=== PATIENT | female | born 1940 | race Caucasian/White ===

== ENCOUNTER 2023-10-26 13:40 | Emergency (ER) | payer OTHER, BC ==
[2023-10-26 14:00] VITALS: BMI 28.2
[2023-10-26] MEDS ORDERED: ASPIRIN 81 MG CHEWABLE TABLETS ONE (15:40)
[2023-10-26] MEDS: ASPIRIN 81 MG CHEWABLE TABLETS PO ONE (15:51)
[2023-10-26] MEDS ORDERED: ACETAMINOPHEN INJECTION 100 ML IVPB ONE (16:01)
[2023-10-26] MEDS: ACETAMINOPHEN 1000 MG/100 ML BAG IVPB ONE (16:05)
[2023-10-26 16:25] LABS: BASO % 0.4 % (0-2.0); EOS % 0.2 % (0-4.5); HEMATOCRIT 40.6 % (32.4-45.2); HEMOGLOBIN 13.1 GM/dL (10.7-15.3); LYMPH % 21.3 % (8-40); MCH 29.4 pg (25.7-33.7); MCHC 32.4 g/dl (32.0-36.0); MEAN CELL VOLUME 90.8 fl (80-96); MEAN PLT VOLUME 9.7 fl (7.5-11.1); MONO % 7.8 % (3.8-10.2); NEUT % 70.3 % (42.8-82.8); PLATELET COUNT 156 10^3/uL (134-434); RBC 4.48 M/mm3 (3.60-5.2); RDW 14.9 % (11.6-15.6); WHITE BLOOD COUNT 8.5 K/mm3 (4.0-10.0)
[2023-10-26 16:35] LABS: INR 1.1 (0.83-1.09); POTASSIUM 4.3 mmol/L (3.5-5.1); PROTHROMBIN TIME (PATIENT) 12.7 SEC (9.7-13.0)
[2023-10-26 16:37] LABS: ACTIVATED PTT 28.4 SECONDS (25.2-36.5); ALBUMIN 3.7 g/dl (3.4-5.0); BLOOD UREA NITROGEN 10.2 mg/dL (7-18); MAGNESIUM 2.1 mg/dL (1.8-2.4)
[2023-10-26 16:40] LABS: CREATININE 0.6 mg/dL (0.55-1.3)
[2023-10-26 16:41] LABS: TOT PROT 6.7 g/dl (6.4-8.2)
[2023-10-26 19:13] VITALS: BP 111/68; PULSE 88; RESP 18; TEMP 98.4
== END 2023-10-26 19:13 | disposition left against medical advice (07) ==
LOC: JER 13:40
PROC: 3E033NZ Introduction of Analgesics, Hypnotics, Sedatives into Peripheral Vein, Percutaneous Approach (ICD-10-PCS; principal; 2023-10-26)
DX: R07.9 Chest pain, unspecified (principal)
CPT/HCPCS: 36415; 71045-TC-FY; 80053; 82962; 83735; 84100; 84484; 85025; 85379; 85610; 85730; 93005; 93010; 99285-25; J0131